=== PATIENT | female | born 1985 | race Caucasian/White ===

== ENCOUNTER → 2024-06-17 17:48 | Outpatient (BNVA) | payer MEDICAID, SELFPAY | PROVIDERS: PCP Family Medicine; Visit Provider Emergency Medicine | DX: J02.9 Acute pharyngitis, unspecified (principal) | CPT/HCPCS: 87880 ==

== ENCOUNTER 2025-06-06 08:58 | Emergency (ER) | payer MEDICAID, SELFPAY ==
--- OUTSIDE RECORDS SUMMARY | 2025-06-02 09:20 | XMS_ITS | Encounter Summary ---
Author Organization [facility] Address [address] [place] [address] Care Team Providers Care Web Content Manager Name Role Phone Ellie Stark MD Primary Care Provider [phone] Reason for Visit * Reason Comments Sore Throat X 2 days ago Encounter Details Date Type Department Care Team (Late st Contact Info) Description 06/02/2025 9:20 AM CDT Office Visit [facility] [address] [place] [phone] Akila Toth, HISTOPATH TECH [address] [phone] Sore throat (Primary Dx) Social History Tobacco Use Types Packs/Day Years Used Date Smoking Tobacco: Former Cigarettes 0.1 4 2 003 - 08/19/2006 Passive Smoke Exposure: Past Smokeless Tobacco: Never Alcohol Use Standard Drinks/Week Comments No 0 (1 standard drink = 0.6 oz pur e alcohol) Feeling Safe Answer Date Recorded Are you in a relationship wi th someone who hurts you emotionally and/or physically? No 01/04/2025 Comments No Sex and Gender Information Value Date Recorded Sex Assigned at Not on file Legal Sex Female 4:29 AM UTILITY TELLER Gender Identity Not on file Sexual Orientation Not on file documented as of this encounter Last Filed Vital Signs Vital Sign Reading Time Taken Comments Blood Pressure 102/70 06/02/2025 8:43 AM CDT Pulse 70 06/02/2025 8:43 AM CDT Temperature 36.9 C (98.4 F) 06/02/2025 8:43 AM CDT Respiratory Rate 17 06/02/2025 8:43 AM CDT Oxygen Saturation 97% 06/02/2025 8:43 AM CDT Inhaled Oxygen Concentration - - Weight 79.8 kg (176 lb) 06/02/2025 8:43 AM CDT Height 165.1 cm (5' 5 ) 06/02/2025 8:43 AM CDT Body Mass Index 29.29 06/02/2025 8:43 AM CDT documented in this encounter Progress Notes * Akila Toth, HISTOPATH TECH - 06/02/2025 9:03 AM CDT HISTORY OF PRESENT ILLNESS Ana Acosta, a 40 y.o. female presents with a Chief Complaint of Sore Throat (X 2 days ago) Subjective Sore Throat Pertinent negatives include no abdominal pain, congestion, coughing, ear pain or shortness of breath. She is here with her 6-year-old daughter who has had a sore throat for about 4 days. She has developed a sore throat just a couple of days ago. Did not had any fevers. 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 REVIEW OF SYSTEMS Review of Systems Constitutional: Negative for activity change, appetite change, chills, diaphoresis, fatigue, fever and unexpected weight change. HENT: Positive for sore throat. Negative for congestion, ear pain, rhinorrhea and sinus pressure. Eyes: Negative for pain and redness. Respiratory: Negative for cough, shortness of breath and wheezing. Cardiovascular: Negative for leg swelling. Gastrointestinal: Negative for abdominal pain. Genitourinary: Negative for difficulty urinating. Skin: Negative for rash. Neurological: Negative for dizziness. Objective PHYSICAL EXAM BP 102/70 (BP Location: Left arm, Patient Position (BP): Sitting, BP Cuff Size: Adult) Pulse 70 Temp 98.4 ??F (36.9 ??C) (Temporal) Resp 17 Ht 5' 5 (1.651 m) Wt 79.8 kg (176 lb) LMP 04/01/2025 (Exact Date) SpO2 97% BMI 29.29 kg/m?? Physical Exam Vitals reviewed. Constitutional: General: She is not in acute distress. Appearance: Normal appearance. She is well-developed. She is not diaphoretic. HENT: Head: Normocephalic and atraumatic. Right Ear: Tympanic membrane, ear canal and external ear normal. Left Ear: Tympanic membrane, ear canal and external ear normal. Nose: Nose normal. Mouth/Throat: Mouth: Mucous membranes are moist. Pharynx: No oropharyngeal exudate or posterior oropharyngeal erythema. Tonsils: 1+ on the right. 1+ on the left. Eyes: General: Right eye: No discharge. Left eye: No discharge. Conjunctiva/sclera: Conjunctivae normal. Neck: Thyroid: No thyromegaly. Cardiovascular: Rate and Rhythm: Normal rate and regular rhythm. Heart sounds: Normal heart sounds. No murmur heard. Pulmonary: Effort: Pulmonary effort is normal. No respiratory distress. Breath sounds: Normal breath sounds. No wheezing or rales. Abdominal: General: Bowel sounds are normal. Musculoskeletal: Cervical back: Normal range of motion and neck supple. Lymphadenopathy: Cervical: No cervical adenopathy. Skin: General: Skin is warm and dry. Neurological: Mental Status: She is alert and oriented to person, place, and time. Psychiatric: Mood and Affect: Mood normal. Behavior: Behavior normal. Thought Content: Thought content normal. Judgment: Judgment normal. Procedures Lab Results Component Value Date/Time FLUAPOC Positive/Detected (A) 08/25/2024 01:04 PM FLUBPOC Negative/Not Detected 08/25/2024 01:04 PM HCGURPOC positive 03/29/2016 02:45 PM RAPIDSTREP Negative 06/02/2025 09:03 AM RHEUMFACTOR <10 12/22/2019 11:14 AM Assessment ASSESSMENT and PLAN: ICD-10-CM ICD-9-CM 1. Sore throat J02.9 462 POC RAPID STREP A ANTIGEN 1. Sore throat with a negative rapid strep reported. Advised supportive care but certainly appropriate to follow-up if she has new or worsening symptomsincluding fever, malaise, cough or worsening sore throat. documented in this encounter Plan of Treatment Upcoming Encounters Date Type Department Care Team (Late st Contact Info) Description 06/21/2025 1:00 PM UTILITY TELLER Clinical Support [facility] [address] [phone] 11/01/2025 9:00 AM CDT Office Visit [facility] [address] [phone] Ellie Stark MD [address] [phone] documented as of this encounter Procedures Procedure Name Priority Date/Time Associated Diagnosis Comments POC RAPID STREP A ANTIGEN Routine 06/02/2025 9:03 AM CDT Sore throat documented in this encounter Results * POC RAPID STREP A ANTIGEN (06/02/2025 9:03 AM CDT) RAPID STREP POC Negative Negative, Indeterminate [facility] INTERNAL KIT QC POC Pass Pass [facility] KIT LOT NUMBER POC [id number] [facility] KIT EXP DATE POC 02.08.2026 [facility] READ METHOD POC Visual [facility] Upper Respiratory SPECIMEN FROM THROAT / Unknown 06/02/2025 9:03 AM CDT Akila CLARKP POINT OF CARE TESTING Final R esult [facility] CLIA# [id number] [address] [place] [address] documented in this encounter Visit Diagnoses Diagnosis Sore throat- Primary Acute pharyngitis documented in this encounter Care Teams Web Content Manager Relationship Specialty Start Date End Date Ellie Stark MD [address] [phone] PCP - General Family Practice 03/27/24 documented as of this encounter
--- OUTSIDE RECORDS SUMMARY | 2025-06-06 09:05 | XMS_ITS | Clinical Summary ---
Author Organization [facility] Address [address] [place] [address] Care Team Providers Care Analytical Manager Name Role Phone Cameron Tracey MD Primary Care Provider [phone] Allergies No known active allergies Medications buPROPion HCL (Wellbutrin XL) 300 mg Extended Release 24 hour tabletIndication s:Recurrent major depressive disorder, in partial remission Take 1 Tablet (300 mg) by mouth daily in the morning. 90 Tablet 1 08/17/2020 Active famotidine (PEPCID) 20 mg tabletIndication s:Mild acid reflux Take 1 Tablet (20 mg) by mouth 2 times daily. 60 Tablet 3 08/17/2020 Active sertraline (ZOLOFT) 100 mg tablet Take 1 Tablet (100 mg) by mouth daily. 30 Tablet 5 08/30/2020 Active butalbital-aceta minophen-caffein e (FIORICET) 50-325-40 mg tabletIndication s:Migraine with aura and without status migrainosus, not intractable Take 1 Tablet by mouth every 4 hours as needed for Migraine. Maximum 6 tablets per day. 30 Tablet 1 10/26/2020 Active valACYclovir (VALTREX) 500 mg tablet TAKE ONE TABLET BY MOUTH DAILY 30 Tablet 5 01/22/2021 Active Active Problems Problem Noted Date Diagnosed Date Recurrent major depressive disorder, in partial remission 04/23/2019 Genital herpes simplex 04/23/2019 Pelvic pain in female 05/19/2018 Screening for cervical cancer 04/20/2016 Overview (05/15/2017): Normal pap 03/2016 Migraine with aura and witho ut status migrainosus, not intractable Resolved Problems Problem Noted Date Diagnosed Date Resolved Date Right ovarian enlargement 05/19/2018 S/P primary low transverse 11/04/2016 05/15/2017 labor in third trimester 09/09/2016 10/07/2016 Outlet contraction of pelvis in 07/21/2016 07/21/2016 Outlet contraction of pelvis in 07/21/2016 11/04/2016 Encounter for supervision of normal in second trimester 06/02/2016 11/04/2016 Immunizations Immunization Administration Dates Next Due (ADACEL/BOOSTRIX)(10 YR UP) TDAP VACCINE, 0.5ML, IM 08/10/2016 (RECOMBIVAX HB/ENGERIX-B)(11 YR UP) HEPATITIS B VACCINE 10 MCG/1 ML OR 20 MCG/1 ML ADOL OR ADULT 2 - 3 DOSE PF, IM 08/23/2016 (TDVAX)(7 YRS UP) TETANUS AN D DIPHTHERIA TOXOIDS, ADSORBED (2 LF OF TETANUS TOXOID AND 2 LF OF DIPHTHERIA TOXOID), 0.5ML (PF), IM 12/27/1997 Hepatitis B Vaccine 07/21/2016,09/01/2015 INFLUENZA VACCINE QUADRIVALE NT 3 YR UP PF IM 05/26/2018,04/19/2017,05/17/2016 Family History Medical History Relation Name Comments Healthy Father Bebo Acosta Depression Mother Shayna Mast Healthy Mother Shayna Mast Healthy Sister 1 Janine Sevilla Thyroid Disease Sister 1 Janine Sevilla Healthy Sister 2 Healthy Son Relation Name Status Comments Father Bebo Acosta Alive Maternal Grandfather Maternal Grandmother Mother Shayna Mast Alive Paternal Grandfather Paternal Grandmother Sister 1 Janine Sevilla Alive Sister 2 Alive Son Alive Social History Tobacco Use Types Packs/Day Years Used Date Smoking Tobacco: Former Cigarettes Q uit: 2006 Smokeless Tobacco: Never Tobacco Cessation:Counseling Given: No Alcohol Use Standard Drinks/Week Comments No 0 (1 standard drink = 0.6 oz pur e alcohol) Comments No Sex and Gender Information Value Date Recorded Sex Assigned at Not on file Legal Sex Female 6:29 AM SOCCER PLAYER Gender Identity Not on file Sexual Orientation Not on file Last Filed Vital Signs Vital Sign Reading Time Taken Comments Blood Pressure 106/60 10/26/2020 11:31 AM SOCCER PLAYER Pulse 80 10/26/2020 11:31 AM SOCCER PLAYER Temperature 37.3 C (99.1 F) 10/26/2020 11:31 AM SOCCER PLAYER Respiratory Rate 16 10/26/2020 11:31 AM SOCCER PLAYER Oxygen Saturation 97% 10/26/2020 11:31 AM SOCCER PLAYER Inhaled Oxygen Concentration - - Weight 69.2 kg (152 lb 9.6 oz) 10/26/2020 11:31 AM SOCCER PLAYER Height 165.1 cm (5' 5 ) 10/26/2020 11:31 AM SOCCER PLAYER Body Mass Index 25.39 10/26/2020 11:31 AM SOCCER PLAYER Plan of Treatment Health Maintenance Due Date Last Done Comments HPV VACCINES (1 - 3-dose SCDM series) 2010 HEPATITIS B VACCINES (2 of 3 - 19+ 3-dose series) 09/20/2016 08/23/2016, 07/21/2016, 09/01/2015 Pre-Diabetes and Diabetes Screening 08/04/201708/04 PAP SMEAR 04/12/2019 04/12/2016, 08/04/2014 CERVICAL CANCER SCREENING 04/12/2021 HPV/Cotest (21-29) 04/12/2021 04/12/2016 HPV/Cotest (30-65) 04/12/2021 04/12/2016 BREAST CANCER SCREENING 2023 INFLUENZA VACCINE (#1) 2025 8, 04/19/2017, 05/17/2016 Preventative Visit-Managed Medicaid 04/28/2025 04/27/2024, 04/28/2018, 04/19/2017 DTAP/TDAP/TD VACCINES (3 - T d or Tdap) 08/10/2026 08/10/2016, 12/27/1997 Procedures Procedure Name Priority Date/Time Associated Diagnosis Comments CERV/VAG CYTOPATH, THIN PREP IMAGR RFLX HPV Routine 04/12/2016 5:12 AM CDT Supervision of other normal , antepartum, first trimester HEMOGLOBIN A1C Routine 08/04/2014 from Last 3 Months or Most Recently Relevant to Health Maintenance Results * CERV/VAG CYTOPATH, THIN PREP IMAGR RFLX HPV (04/12/2016 5:12 AM CDT) CASE REPORT Gynecologic Cytology Report Case: [id number] Authorizing Provider: Alexsandra Curtis MD Collected: 04/12/2016511 Ordering Location: [facility] Received: 04/16/2016512 Services [place] First Screen: Eugenia Douglas Specimen: LB PAP IM W/RFLX HPV PROT, Endocervix 04/19/2016 10:57 AM CDT [facility] Pc Installation Engineer Specimen Adequacy Satisfactory for evaluation, endocervical/montelongo sformation zone component absent 04/19/2016 10:57 AM CDT [facility] Pc Installation Engineer General Categorization Negative For Intraepithelial Lesion Or Malignancy 04/19/2016 10:57 AM CDT [facility] Pc Installation Engineer Interpretation Negative For Intraepithelial Lesion Or Malignancy 04/19/2016 10:57 AM CDT [facility] Verified by Eugenia Douglas on 04/19/2016 at 1057 CDT Comment: Routine follow-up is suggested. Pc Installation Engineer Previous Pap Date 04/19/2016 10:57 AM CDT [facility] Comment:date unknown Pc Installation Engineer Prev Pap Result NIL 04/19/2016 10:57 AM CDT [facility] GynLMP 12/28/15 04/19/2016 10:57 AM T [facility] Pc Installation Engineer Educational Note 04/19/2016 10:57 AM T [facility] Comment: Gynecological cytology is a screening procedure subject to both false negative and false positive results. It is most reliable when a satisfactory sample is obtained on a regular repetitive basis. Results must be interpreted in the context of historic and current clinical information. Recommend patient management according to the 2012 ASCCP Consensus Guidelines, ([place]: Cancer J Clin, 62(3); 147-172,2012) EMBEDDED IMAGE 04/19/2016 10:57 AM CDT [facility] Genital SWAB OF ENDOCERVIX / Unknown 04/12/2016 5:12 AM CDT 04/16/2016 5:13 AM CDT us Alexsandra Curtis MD PATHOLOGY/CYTOLOGY ORDERAB LES Final Result [facility] CLIA# [id number] [address] [place] [address] * HEMOGLOBIN A1C (08/04/2014) ABSTRACTED HGB A1C 4.7 EXTERNAL LAB HEMOGLOBIN A1C 4.7 - 6.4 % EXTERNAL LAB HEMOGLOBIN A1C EXTERNAL LAB GLUCOSE, MEAN BLOOD EXTERNAL LAB Blood specimen (specimen) 08/04/2014 us Abstract Spg Provider CHEMISTRY ORDERABLES Final Result Performing Organization Address City/[facility] Co de Phone Number EXTERNAL LAB from Last 3 Months or Most Recently Relevant to Health Maintenance Insurance [facility] [employer] DIM[employer]RIS Advance Directives For more information, please contact: [phone] * Full Code (Latest Code Status on File) Date Activated Date Inactivated Comments 09/20/2016 8:55 AM 09/20/2016 10:26 AM * Full Code Date Activated Date Inactivated Comments 09/09/2016 1:58 PM 09/11/2016 4:59 PM Care Teams Analytical Manager Relationship Specialty Start Date End Date Cameron Tracey MD [address] [place] [phone] PCP - General Family Practice 05/14/19
--- OUTSIDE RECORDS SUMMARY | 2025-06-06 09:05 | XMS_ITS | Encounter Summary ---
Author Organization [facility] Address [address] [place] [address] Care Team Providers Care Fiber Worker Name Role Phone Cameron Tracey MD Primary Care Provider [phone] Reason for Referral * Outpatient Services (Routine) - Closed Specialty Diagnoses / Procedures Referred By Liz miranda Referred To Contact Diagnoses Suspected abnormality affecting management of mother, antepartum, not applicable or unspecified fetus Procedures US OB DETAIL SINGLE GEST Gabriel Prado MD [address] [address] Phone: tel: fax: Referral ID Status Reason Start Date Expiration Date Visits Re quested Visits Authorized [id number] Closed 09/11/2016 10/12/2017 1 1 CE MACHINERY OR EQUIPMENT INSTALLER Encounter Details Date Type Department Care Team (Late st Contact Info) Description 09/11/2016 Ancillary Orders [facility] 5B Gynecology [address] [place] [address] Gabriel Prado MD [address] [phone] Suspected abnormality affecting management of mother, antepartum, not applicable or unspecified fetus Social History Tobacco Use Types Packs/Day Years Used Date Smoking Tobacco: Former Cigarettes Smokeless Tobacco: Never Alcohol Use Standard Drinks/Week Comments No 0 (1 standard drink = 0.6 oz pur e alcohol) Comments Yes Sex and Gender Information Value Date Recorded Sex Assigned at Not on file Legal Sex Female 6:29 AM OFFICE MACHINERY OR EQUIPMENT INSTALLER Gender Identity Not on file Sexual Orientation Not on file documented as of this encounter Plan of Treatment Not on file documented as of this encounter Results * US OB DETAIL SINGLE GEST (09/11/2016 4:43 PM OFFICE MACHINERY OR EQUIPMENT INSTALLER) Anatomical Region Laterality Modality Pelvis Ultrasound 09/11/2016 3:52 PM OFFICE MACHINERY OR EQUIPMENT INSTALLER Impressions 09/12/2016 4:02 PM OFFICE MACHINERY OR EQUIPMENT INSTALLER IMPRESSION Findings Comment abnormalities are not identified Incomplete detailed anatomy scan, compromised by the advanced gestational age. Estimated weight is appropriate for gestational age Narrative 09/12/2016 4:02 PM [facility] Detailed US Pat. Name: ANA ACOSTA Study Date: 09/11/2016 3:52pm Pat. NO: [id number] Referring MD: GABRIEL PRADO Site: [facility] Wood Model Builder: Kei Ott RDMS, Brandy Masterson RDMS : 1985 Age: 31 INDICATION Suspected Congenital Anomaly CODING Procedures 54969: OB with Detail (Comprehensive). HISTORY OB History : 2. Para: 1. METHOD Transabdominal ultrasound examination. Adequate. Roche . Number of fetuses: 1. DATING GA by stated dating 35 w + 0 d VANNA by stated dating : 10/16/2016 Ultrasound examination on: 09/11/2016 GA by U/S based upon: AC, BPD, Femur, HC GA by U/S 34 w + 5 d VANNA by U/S: 10/18/2016 Assigned: Dating performed on 09/11/2016, based on the stated dating Assigned GA 35 w + 0 d Assigned VANNA: 10/16/2016 BIOMETRY Main Biometry: BPD 88.2 mm 71% 35w 5d Hadlock OFD 111.2 mm 89% 37w 1d Gm HC 314.2 mm 22% 35w 2d Hadlock AC 297.8 mm 22% 33w 5d Hadlock Femur 66.0 mm 18% 34w 0d Hadlock Cerebellum tr 47.8 mm 92% 36w 1d Sanches CM 5.7 mm 9% Nicolaides Humerus 55.5 mm 8% 32w 2d Gm Weight Calculation: EFW 2,362 g 30% Ever EFW (lb,oz) 5 lb 3 oz Calculated by Carlos ([id number]) Proportionality Ratios: Cephalic index 0.79 33% Nicolaides HC / AC 1.06 64% Nicolaides FL / BPD 0.75 FL / AC 0.22 Head / Face / Neck Biometry: Track Laying Machine Operator 8.4 mm Extremities / Bony Struc Biometry: Radius 47.0 mm 18% Chitty Ulna 56.7 mm 61% 35w 5d Gm Tibia 56.9 mm 33% 33w 3d Gm Fibula 55.0 mm 29% 34w 0d Gm GENERAL EVALUATION Cardiac activity: present. movements: present. Presentation: cephalic. Placenta: Fundal to right laterat, Grade III, inferior placental margin is > 2.0 cm from the internal cervical os. Umbilical cord: 3 vessel cord, placental cord insertion is central. Amniotic fluid: Appears normal. ANATOMY The following structures were visualized with normal appearance: Head Head size. Head shape. Brain Parenchyma. Lateral cerebral ventricles. Third ventricle. Fourth ventricle. Cisterna magna. Midline falx. Choroid plexus. Thalami. Cavum septi pellucidi. Posterior fossa. Cerebellum. Cerebrum. Cerebellar lobes. Vermis. Face Nose. Lips. Palate. Maxilla. Neck Spine Cervical, thoracic, lumbar and sacral spine appear normal. Thorax No thoracic abnormalities detected. Right lung. Left lung. Diaphragm. Heart Situs. Four chamber view. Left ventricular outflow tract. Right ventricular outflow tract. 3-vessel - trachea view. 3-vessel view. Bicaval view: IVC/SVC appear nomal. Aortic arch view. High short axis view. Stomach Stomach size and situs appear normal. GI tract Liver. Bowel. Kidneys Kidneys appear normal bilaterally. Bladder size and shape. Upper extrem. Long bones of the upper extremities appear bilaterally symmetric and have normal appearing architecture. Lower extrem. Long bones of the lower extremeties appear bilaterally symmetric and have normal appearing architecture. Skeleton Position of hands: Hands open and close. The following structures could not be adequately visualized: Face Profile. The following structures could not be visualized: Face Mandible. Abdominal wall Umbilical cord insertion site. Skeleton Position of feet. Gender: male. MATERNAL STRUCTURES Uterus Unremarkable. Cervix Unremarkable. Right Ovary Visualized. Appearance: No adnexal mass identified. Left Ovary Visualized. Appearance: No adnexal mass identified. Cul de Sac Imaging of the cul-de-sac is unremarkable. Procedure Note Trey Aden II, MD - 09/12/2016 [facility] Pat. Name:David ACOSTA Date:09/11/2016 3:52pm Pat. NO: [id number] MD:GABRIEL PRADO [facility]Kei Ott RDMS, Brandy Masterson RDMS :1985Age:31 INDICATION Suspected Congenital Anomaly CODING Procedures 14893: OB with Detail (Comprehensive). HISTORY OB History : 2. Para: 1. METHOD Transabdominal ultrasound examination. Adequate. Roche . Number of fetuses: 1. DATING GA by stated dating 35 w + 0 d VANNA by stated dating :10/16/2016 Ultrasound examination on:09/11/2016 GA by U/S based upon:AC, BPD, Femur, HC GA by U/S34 w + 5 d VANNA by U/S:10/18/2016 Assigned:Dating performed on 09/11/2016, based on the stated dating Assigned GA35 w + 0 d Assigned VANNA:10/16/2016 BIOMETRY Main Biometry: BPD 88.2 mm 71% 35w 5d Hadlock OFD 111.2 mm 89% 37w 1d Gm HC 314.2 mm 22% 35w 2d Hadlock AC 297.8 mm 22% 33w 5d Hadlock Femur 66.0 mm 18% 34w 0d Hadlock Cerebellum tr 47.8 mm 92% 36w 1d Sanches CM 5.7 mm 9% Nicolaides Humerus 55.5 mm 8% 32w 2d Gm Weight Calculation: EFW 2,362 g 30% Ever EFW (lb,oz) 5 lb 3 oz Calculated by Carlos ([id number]) Proportionality Ratios: Cephalic index 0.79 33% Nicolaides HC / AC 1.06 64% Nicolaides FL / BPD 0.75 FL / AC 0.22 Head / Face / Neck Biometry: Track Laying Machine Operator 8.4 mm Extremities / Bony Struc Biometry: Radius 47.0 mm 18% Chitty Ulna 56.7 mm 61% 35w 5d Gm Tibia 56.9 mm 33% 33w 3d Gm Fibula 55.0 mm 29% 34w 0d Gm GENERAL EVALUATION Cardiac activity: present. movements: present. Presentation: cephalic. Placenta: Fundal to right laterat, Grade III, inferior placental margin is > 2.0 cm from the internal cervical os. Umbilical cord: 3 vessel cord, placental cord insertion is central. Amniotic fluid: Appears normal. ANATOMY The following structures were visualized with normal appearance: Head Head size. Head shape. Brain Parenchyma. Lateral cerebral ventricles. Third ventricle. Fourth ventricle. Cisterna magna. Midline falx. Choroid plexus. Thalami. Cavum septi pellucidi. Posterior fossa. Cerebellum. Cerebrum. Cerebellar lobes. Vermis. Face Nose. Lips. Palate. Maxilla. Neck Spine Cervical, thoracic, lumbar and sacral spine appear normal. Thorax No thoracic abnormalities detected. Right lung. Left lung. Diaphragm. Heart Situs. Four chamber view. Left ventricular outflow tract. Right ventricular outflow tract. 3-vessel - trachea view. 3-vessel view. Bicaval view: IVC/SVC appear nomal. Aortic arch view. High short axis view. Stomach Stomach size and situs appear normal. GI tract Liver. Bowel. Kidneys Kidneys appear normal bilaterally. Bladder size and shape. Upper extrem. Long bones of the upper extremities appear bilaterally symmetric and have normal appearing architecture. Lower extrem. Long bones of the lower extremeties appear bilaterally symmetric and have normal appearing architecture. Skeleton Position of hands: Hands open and close. The following structures could not be adequately visualized: Face Profile. The following structures could not be visualized: Face Mandible. Abdominal wall Umbilical cord insertion site. Skeleton Position of feet. Gender: male. MATERNAL STRUCTURES Uterus Unremarkable. Cervix Unremarkable. Right Ovary Visualized. Appearance: No adnexal mass identified. Left Ovary Visualized. Appearance: No adnexal mass identified. Cul de Sac Imaging of the cul-de-sac is unremarkable. IMPRESSION IMPRESSION Findings Comment abnormalities are not identified Incomplete detailed anatomy scan, compromised by the advanced gestational age. Estimated weight is appropriate for gestational age us Gabriel Prado MD ORDERABLES Final R esult documented in this encounter Visit Diagnoses Diagnosis Suspected abnormality affecting management of mother, antepartum, not applicable or unspecified fetus documented in this encounter Care Teams Fiber Worker Relationship Specialty Start Date End Date Cameron Tracey MD [address] [place] [phone] PCP - General Family Practice 05/14/19 documented as of this encounter
--- OUTSIDE RECORDS SUMMARY | 2025-06-06 09:05 | XMS_ITS | Encounter Summary ---
Author Organization [facility] Address [address] [place] [address] Care Team Providers Care Plant And Maintenance Technician Name Role Phone Cameron Tracey MD Primary Care Provider [phone] Encounter Details Date Type Department Care Team (Latest Contact Info) Description 03/03/[address] 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
--- OUTSIDE RECORDS SUMMARY | 2025-06-06 09:05 | XMS_ITS | Encounter Summary ---
Author Organization [facility] Address [address] [place] [address] Care Team Providers Care Plastic Press Molder Name Role Phone Cameron Tracey MD Primary Care Provider [phone] Encounter Details Date Type Department Care Team (Late st Contact Info) Description 07/13/2002 Emergency [facility] Emergency Department [address] 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
--- OUTSIDE RECORDS SUMMARY | 2025-06-06 09:05 | XMS_ITS | Encounter Summary ---
Author Organization [facility] Address [address] [place] [address] Care Team Providers Care Pediatric Psychiatrist Name Role Phone Cameron Tracey MD Primary Care Provider [phone] Encounter Details Date Type Department Care Team (Latest Contact Info) Description 09/04/2000 Outpatient Historical [facility] [address] [phone] Cinthia Pham MD [address], [address] Acute frontal sinusitis (Primary Dx); Pneumonia, organism unspecified(486) Social History Tobacco Use Types Packs/Day Years Used Date Smoking Tobacco: Never Assessed Comments Unknown Sex and Gender Information Value Date Recorded Sex Assigned at Not on file Legal Sex Female 6:29 AM VISCERA WASHER Gender Identity Not on file Sexual Orientation Not on file documented as of this encounter Plan of Treatment Not on file documented as of this encounter Visit Diagnoses Diagnosis Acute frontal sinusitis- Primary Pneumonia, organism unspecified(486) Pneumonia, organism unspecified documented in this encounter Care Teams Pediatric Psychiatrist Relationship Specialty Start Date End Date Cameron Tracey MD [address] [place] [phone] PCP - General Family Practice 05/14/19 documented as of this encounter
--- OUTSIDE RECORDS SUMMARY | 2025-06-06 09:05 | XMS_ITS | Clinical Summary ---
Author Organization [facility] Address [address] [place] [address] Care Team Providers Care Plastics Engineering Teacher Name Role Phone Ellie Stark MD Primary Care Provider [phone] Allergies Active Allergy Reactions Criticality Noted Date Comments Loratadine-Pseudoeph edrine Other (See Comments) 05/04/2024 Increased heart rate Sulfamethoxazole-Tri methoprim Anaphylaxis,Swelling High 05/18/2024 Medications butalbital-acet aminophen-caffe ine (FIORICET) 50-325-40 mg tablet Take 1 Tablet by mouth every 4 hours as needed for Migraine. 3 Active albuterol sulfate HFA 90 mcg/actuation aerosol inhalerIndicati ons:Wheezing Take 2 Puffs by inhalation every 6 hours as needed for Shortness of Breath or Wheezing. 8.5 Gram 1 4 Active Additional Information Patient not taking.Reported on 06/02/2025 ibuprofen (MOTRIN) 600 mg tabletIndicatio ns:Acute left-sided thoracic back pain Take 1 Tablet (600 mg) by mouth every 8 hours as needed for Pain. 15 Tablet 4 Active Additional Information Patient not taking.Reported on 06/02/2025 EpiPen 2-Ilya 0.3 mg/0.3 mL Auto-Injector Inject 0.3 mg by subcutaneous injection one time only. 4 Active mupirocin (BACTROBAN) 2 % OintmentIndicat ions:Furuncle of groin Apply to affected area daily. 30 Gram 1 4 Active Additional Information Patient not taking.Reported on 06/02/2025 hydrOXYzine HCL (ATARAX) 25 mg tabletIndicatio ns:Anxiety state Take 1 Tablet (25 mg) by mouth 3 times daily as needed for Itching. 30 Tablet 5 Active Additional Information Patient not taking.Reported on 06/02/2025 valACYclovir (VALTREX) 500 mg tabletIndicatio ns:Genital herpes simplex, unspecified site Take 1 Tablet (500 mg) by mouth daily. 30 Tablet 3 5 Active acetaminophen (TYLENOL) 500 mg tablet Take 500 mg by mouth every 6 hours as needed for Pain. Active aspirin (JOSÉ MIGUEL CHEWABLE) 81 mg Tablet, Chewable Take 1 Tablet (81 mg) by mouth 2 times daily. 60 Tablet 1 01/04/2025 12:14 PM CDT 5 Active Additional Information Patient not taking.Reported on 06/02/2025 oxyCODONE-aceta minophen (Percocet) 5-325 mg tabletIndicatio ns:Arthritis of right subtalar joint Take 1 Tablet by mouth every 4 hours as needed for Pain. 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 Dorsocervical fat pad 06/09/2024 Dizziness 05/18/2024 Nausea 05/18/2024 Right carpal tunnel syndrome 02/13/2023 Recurrent major depressive disorder, in partial remission 04/23/2019 Genital herpes simplex 04/23/2019 Pelvic pain in female 05/19/2018 Screening for cervical cancer 04/20/2016 Overview (12/15/2020): Normal pap 03/2016 Migraine with aura and witho ut status migrainosus, not intractable Resolved Problems Problem Noted Date Diagnosed Date Resolved Date Abscess of right groin 05/18/202404/29 Right ovarian enlargement 05/19/2018 S/P primary low transverse 11/04/2016 05/15/2017 labor in third trimester 09/09/2016 10/07/2016 Outlet contraction of pelvis in 07/21/2016 11/04/2016 Outlet contraction of pelvis in 07/21/2016 07/21/2016 Encounter for supervision of normal in second trimester 06/02/2016 11/04/2016 Encounters Date Type Department Care Team Description 06/02/2025 9:20 AM CDT Office Visit [facility] [address] [phone] Akila Toth, CHAIN SAW OPERATOR Sore throat (Primary Dx) 04/29/2025 10:00 AM CDT Office Visit [facility] [address] [phone] Ellie Stark MD Migraine with aura and without status migrainosus, not intractable (Primary Dx); Recurrent major depressive disorder, in partial remission; Genital herpes simplex, unspecified site 04/27/2025 9:45 AM CDT Ancillary Procedure [facility] [address] [place] [address] Porfirio Chamorro MD S/P foot surgery, right 04/27/2025 9:40 AM CDT Office Visit [facility] [address] [place] [phone] Porfirio Chamorro MD S/P foot surgery, right (Primary Dx) 03/16/2025 9:55 AM CDT Ancillary Procedure [facility] [address] [place] [phone] Porfirio Chamorro MD S/P foot surgery, right 03/16/2025 9:50 AM CDT Office Visit [facility] [address] [place] [address] Porfirio Chamorro MD S/P foot surgery, right (Primary Dx) from Last 3 Months Immunizations Immunization Administration Dates Next Due (ADACEL/BOOSTRIX)(10 YR UP) TDAP VACCINE, 0.5ML, IM 11/20/2018,08/10/2016 (RECOMBIVAX HB/ENGERIX-B)(11 YR UP) HEPATITIS B VACCINE 10 MCG/1 ML OR 20 MCG/1 ML ADOL OR ADULT 2 - 3 DOSE PF, IM 08/23/2016 (SPIKEVAX) (12 YRS UP PRIMAR Y SERIES) COVID-19 VACCINE - MRNA-1273(PF) 100 MCG/0.5 ML IM SUSP 04/24/2021,03/27/2021 (TDVAX)(7 YRS UP) TETANUS AN D DIPHTHERIA TOXOIDS, ADSORBED (2 LF OF TETANUS TOXOID AND 2 LF OF DIPHTHERIA TOXOID), 0.5ML (PF), IM 12/27/1997 Hepatitis B Vaccine 07/21/2016,09/01/2015 Hepatitis B Vaccine Adult IM Patient Supplied 08/23/2016 INFLUENZA VACCINE QUADRIVALE NT 3 YR UP PF IM 05/26/2018,04/19/2017,05/17/2016 INFLUENZA VACCINE QUADRIVALE NT 6 MOS UP PF IM 07/10/2022,05/26/2018,04/19/2017,2015 INFLUENZA VACCINE TRIVALENT SPLIT VIRUS, (6 MOS UP), 0.5ML (PF), IM 06/11/2024 Family History Medical History Relation Name Comments Healthy Father Bebo Acosta Heart Attack Father Bebo Acosta Heart Surgery Father Bebo Acosta Depression Mother Shayna Mast Healthy Mother Shayna Mast Healthy Sister 1 Janine Sevilla Thyroid Disease Sister 1 Janine Sevilla Healthy Sister 2 Healthy Son Breast Cancer Neg Hx Colon Cancer Neg Hx Melanoma Neg Hx Ovarian Cancer Neg Hx Pancreatic Cancer Neg Hx Uterine or Endometrial Cance r, Not Including Cervical Neg Hx Relation Name Status Comments Father Bebo Acosta Alive Maternal Grandfather Maternal Grandmother Mother Shayna Mast Alive Paternal Grandfather Paternal Grandmother Sister 1 Janine Sevilla Alive Sister 2 Alive Son Alive Social History Tobacco Use Types Packs/Day Years Used Date Smoking Tobacco: Former Cigarettes 0.1 4 2 003 - 08/19/2006 Passive Smoke Exposure: Past Smokeless Tobacco: Never Tobacco Cessation:Counseling Given: Not Answered Alcohol Use Standard Drinks/Week Comments No 0 (1 standard drink = 0.6 oz pur e alcohol) Feeling Safe Answer Date Recorded Are you in a relationship wi th someone who hurts you emotionally and/or physically? No 01/04/2025 Comments No Sex and Gender Information Value Date Recorded Sex Assigned at Not on file Legal Sex Female 4:29 AM VARNISH MAKER Gender Identity Not on file Sexual Orientation [...] Mass Index 29.29 06/02/2025 8:43 AM CDT Plan of Treatment Upcoming Encounters Date Type Department Care Team (Late st Contact Info) Description 06/21/2025 1:00 PM VARNISH MAKER Clinical Support [address] [phone] 11/01/2025 9:00 AM CDT Office Visit [address] [phone] Ellie Stark MD [address] [place] [phone] Health Maintenance Due Date Last Done Comments HPV VACCINES (1 - 3-dose SCD M series) 2010 HEPATITIS B VACCINES (2 of 3 - 19+ 3-dose series) 09/20/2016 08/23/2016, 08/23/2016, 07/21/2016, Additional history exists Pre-Diabetes and Diabetes Screening 08/04/2017 08/04/2014 INFLUENZA VACCINE (#1) 2025 , 07/10/2022, 05/26/2018, Additional history exists COVID-19 Vaccine (2024-2 6 season) 2025 04/24/2021, 03/27/2021 Preventative Visit-Managed Medicaid 04/28/2025 04/27/2024, 04/28/2018, 04/19/2017 BREAST CANCER SCREENING 07/08/2025 07/08/2024 PAP SMEAR 10/22/2027 10/21/2024, 03/20, 04/12/2016, Additional history exists DTAP/TDAP/TD VACCINES (4 - T d or Tdap) 11/20/2028 11/20/2018, 08/10/2016, 12/27/1997 CERVICAL CANCER SCREENING 10/21/2029 HPV/Cotest (21-29) 10/21/2029 10/21/2024, 0 04/12/2016, 08/04/2014 HPV/Cotest (30-65) 10/21/2029 10/21/2024, 0 04/12/2016, 08/04/2014 Medical Devices Implanted Type Area Turret Lathe Machinist Device Identifier Shelf Expiration Date Model / Serial / Lot Augment Injectable 3ml [id number] - [id number] Implanted:Qty: 1 on 01/04/2025 by Porfirio Chamorro MD at [facility] Biological Right: Foot [employer] [id number] 04/15/2027 [id number] / / [id number] Screw Cmprsn Hdls 7.0x80mm T25 Ft Ar-8770-80h - [id number] Implanted:Qty: 1 on 01/04/2025 by Porfirio Chamorro MD at [facility] Screw Right: Foot [employer] 01/01/2026 AR-8770- 80H / / [id number] Screw Cmprsn Hdls 7.0x75mm T25 Ft Ar-8770-75h - [id number] Implanted:Qty: 1 on 01/04/2025 by Porfirio Chamorro MD at [facility] Screw Right: Foot [employer] 01/01/2026 AR-8770- 75H / / [id number] Allograft Arthrocell+ 5ml Abs-2089-12 - [id number] Implanted:Qty: 1 on 01/04/2025 by Porfirio Chamorro MD at [facility] Tissue Right: Foot [employer] 11/07/2025 ABS-2089 / / [id number] Graft Allosync Dbm Fiber 5ml Ronni Abs-2016-12 [id number] Implanted:Qty: 1 on 01/04/2025 by Porfirio Chamorro MD at [facility] Tissue Right: Foot [employer] 08/15/2026 ABS-2016 / [id number] / Readigraft Canc Chips 15ml Can15 14bp - [id number] Implanted:Qty: 1 on 01/04/2025 by Porfirio Chamorro MD at [facility] Tissue Right: Foot [employer] 07/20/2029 CAN15 14BP / / [id number] 20mmx7.5mm Implanted:Qty: 1 on 01/04/2025 by Porfirio Chamorro MD at [facility] Right: Foot 02/15/2027 ARTHREX- ABS-2800 2075 / / [id number] Procedures Procedure Name Priority Date/Time Associated Diagnosis Comments POC RAPID STREP A ANTIGEN Routine 06/02/2025 9:03 AM CDT Sore throat XR FOOT 3+ VW RIGHT Routine 04/27/2025 9 :47 AM CDT S/P foot surgery, right XR ANKLE 3+ VW RIGHT Routine 03/16/2025 10:01 AM CDT S/P foot surgery, right CERV/VAG CYTO SCREEN PAP W/HPV Routine 10/21/2024 11:17 AM VARNISH MAKER Screening for cervical cancer MAMMO 3D HANNAH SCREEN BILATERAL MOBILE Routine 07/08/2024 10:17 AM VARNISH MAKER Visit for screening mammogram HEMOGLOBIN A1C 08/04/2014 from Last 3 Months or Most Recently Relevant to Health Maintenance Results * POC RAPID STREP A ANTIGEN (06/02/2025 9:03 AM CDT) RAPID STREP POC Negative Negative, Indeterminate [facility] INTERNAL KIT QC POC Pass Pass [facility] KIT LOT NUMBER POC [phone] [facility] KIT EXP DATE POC 02.08.2026 [facility] READ METHOD POC Visual [facility] Upper Respiratory SPECIMEN FROM THROAT / Unknown 06/02/2025 9:03 AM CDT Akila Toth CHAIN SAW OPERATOR POINT OF CARE TESTING Final R esult [facility] CLIA# [id number] [address] [place] [address] * XR FOOT 3+ VW RIGHT (04/27/2025 9:47 AM CDT) Anatomical Region Laterality Modality Ankle / Foot Computed Radiogr aphy Narrative 05/13/2025 4:32 PM CDT AP, lateral, and oblique x-rays of the right foot: Two screws spanning in the subtalar joint, which appears to be consolidated. There is some talar beaking at the talar neck, which was previously noted. The overall bony alignment is maintained with no obvious new acute fracture or dislocation. us Porfirio Chamorro MD DIAGNOSTIC IMAGING ORDERABLES Final Result * XR ANKLE 3+ VW RIGHT (03/16/2025 10:01 AM CDT) Anatomical Region Laterality Modality Ankle / Foot Computed Radiogr aphy Narrative 03/23/2025 4:41 PM CDT AP, lateral, and oblique X-rays of the right ankle performed on 03/16/2025 show two screws spanning the subtalar joint, which appears to be consolidating. There is no obvious evidence of nonunion. Overall bony alignment is maintained, and no fractures or dislocations are appreciated. Porfirio Chamorro MD DIAGNOSTIC IMAGING ORDERABLES Final Result * CERV/VAG CYTO SCREEN PAP W/HPV (10/21/2024 11:17 AM VARNISH MAKER) CLINICAL INFORMATION [facility] Comment:None given LAST MENSTRUAL PERIOD [facility] Comment:[id number] PREV PAP: [facility] Comment:NONE GIVEN PREV BX: [facility] Comment:NONE GIVEN SOURCE [facility] Comment:Endocervix ADEQUACY: [facility] Comment: Satisfactory for evaluation. Endocervical/transformation zone component present. PAP INTERP [facility] Comment: Cytology Results: Negative for intraepithelial lesion or malignancy. COMMENT (PAP TEST) Q [facility]est [facility] Comment: This Pap test has been evaluated with computer assisted technology. PHYSICAL THERAPY ASST: Stefany est [facility] [place] Comment: YQ, CT(ASCP) CT screening location: [facility] [place] [address] [place] [address] EXPLANATORY NOTE [facility] Comment: EXPLANATORY NOTE: The Pap is a screening test for cervical cancer. It is not a diagnostic test and is subject to false negative and false positive results. It is most reliable when a satisfactory sample, regularly obtained, is submitted with relevant clinical findings and history, and when the Pap result is evaluated along with historic and current clinical information. HPV E6/E7 Not Detected Not Detected [facility] Comment: Methodology: Shop Firer/Fireman-Mediated Amplification This assay detects E6/E7 viral messenger RNA (mRNA) from 14 high-risk HPV types (16,18,31,33,35,39,45,51,52,56,58,59,66,68). Cervical sources are required for HPV testing. If a vaginal source from a patient who has had a total hysterectomy with removal of cervix was submitted, please contact the testing laboratory for alternative testing options. For additional information, please refer to http://education.[employer]/faq/LKS538q8 (This link if provided for information/ educational purposes only.) Test Performed at: [facility] [address] [place] [address] Hannah Fry MD SL Genital SWAB OF ENDOCERVIX / Unknown 10/21/2024 11:17 AM VARNISH MAKER 10/22/2024 6:54 AM VARNISH MAKER Brittani Hays GRAVURE PRESS SET UP OPERATOR PATHOLOGY/CYTOLOGY ORDERABL ES Final Result Performing Organization Address [facility] Co de Phone Number [facility] [phone] [facility] [address] [place] [address] * MAMMO 3D HANNAH SCREEN BILATERAL MOBILE (07/08/2024 10:17 AM VARNISH MAKER) Anatomical Region Laterality Modality Breast Bilateral Mammography Impressions 07/21/2024 10:16 PM VARNISH MAKER : No mammographic evidence of malignancy. BI-RADS ASSESSMENT: 1 - Negative RECOMMENDATION: Routine annual screening mammography. Narrative 07/21/2024 10:16 PM VARNISH MAKER EXAM: MAMMO SCRN BILAT 3D HANNAH W OR WO CAD INDICATION: Screening COMPARISON: This is the patient's Baseline Mammogram. No comparisons are available. BREAST COMPOSITION: The breasts are heterogeneously dense, which may obscure small masses. FINDINGS: RIGHT BREAST: There are no suspicious masses, calcifications, or areas of architectural distortion. LEFT BREAST: There are no suspicious masses, calcifications, or areas of architectural distortion. us Ellie Stark MD MAMMO ORDERABLES Final Res ult * HEMOGLOBIN A1C (08/04/2014) ABSTRACTED HGB A1C 4.7 EXTERNAL LAB HEMOGLOBIN A1C EXTERNAL LAB HEMOGLOBIN A1C EXTERNAL LAB GLUCOSE, MEAN BLOOD EXTERNAL LAB Blood 08/04/2014 Narrative EXTERNAL LAB - 08/04/2014 This order was created through External Result Entry us Sgf Scanning CHEMISTRY ORDERABLES Final Resul t EXTERNAL LAB from Last 3 Months or Most Recently Relevant to Health Maintenance Insurance [employer] MEDICAID RX INFOCROSSING Medicaid Care Teams Plastics Engineering Teacher Relationship Specialty Start Date End Date Ellie Stark MD [address] [place] [phone] PCP - General Family Practice 03/27/24
--- OUTSIDE RECORDS SUMMARY | 2025-06-06 09:05 | XMS_ITS | Encounter Summary ---
Author Organization [facility] Address [address] [place] [address] Care Team Providers Care Director Compensation Name Role Phone Cameron Tracey MD Primary Care Provider [phone] Encounter Details Date Type Department Care Team (Latest Contact Info) Description 07/20/2002 Outpatient Historical [facility] [place] [address] [phone] Brittani Bowden MD [address] [place] [address] OPEN WOUND OF FACE NOS (Primary Dx); ATTEN-SURG DRESSNG/SUTUR; OBSERVATION-ACCIDENT NEC Social History Tobacco Use Types Packs/Day Years Used Date Smoking Tobacco: Never Assessed Comments Unknown Sex and Gender Information Value Date Recorded Sex Assigned at Not on file Legal Sex Female 6:29 AM OUTREACH CLINICIAN Gender Identity Not on file Sexual Orientation Not on file documented as of this encounter Plan of Treatment Not on file documented as of this encounter Visit Diagnoses Diagnosis Open wound of face, unspecified site, without mention of complication- Primary Attention to dressings and sutures Observation following other accident documented in this encounter Care Teams Director Compensation Relationship Specialty Start Date End Date Cameron Tracey MD [address] [place] [phone] PCP - General Family Practice 05/14/19 documented as of this encounter
--- OUTSIDE RECORDS SUMMARY | 2025-06-06 09:05 | XMS_ITS | Encounter Summary ---
Author Organization [facility] Address [address] [place] [address] Care Team Providers Care Business Technology Professor Name Role Phone Cameron Tracey MD Primary Care Provider [phone] Encounter Details Date Type Department Care Team (Latest Contact Info) Description 02/24/2002 Outpatient Historical [facility] [address] [place] [phone] Brittani Bowden MD [address] [place] [phone] VAGINITIS NOS (Primary Dx) Social History Tobacco Use Types Packs/Day Years Used Date Smoking Tobacco: Never Assessed Comments Unknown Sex and Gender Information Value Date Recorded Sex Assigned at Not on file Legal Sex Female 6:29 AM LICENSED CHEMICAL SPRAY TECHNICIAN Gender Identity Not on file Sexual Orientation Not on file documented as of this encounter Plan of Treatment Not on file documented as of this encounter Visit Diagnoses Diagnosis Vaginitis and vulvovaginitis, unspecified- Primary documented in this encounter Care Teams Business Technology Professor Relationship Specialty Start Date End Date Cameron Tracey MD [address] [place] [phone] PCP - General Family Practice 05/14/19 documented as of this encounter
--- OUTSIDE RECORDS SUMMARY | 2025-06-06 09:05 | XMS_ITS | Encounter Summary ---
Author Organization [facility] Address [address] [place] [address] Care Team Providers Care Lightning Protection Installer Name Role Phone Cameron Tracey MD Primary Care Provider [phone] Encounter Details Date Type Department Care Team (Latest Contact Info) Description 04/19/2000 Outpatient Historical [facility] [address] [place] [phone] Navi Leong MD [address] [place] [phone] Acute pharyngitis (Primary Dx) Social History Tobacco Use Types Packs/Day Years Used Date Smoking Tobacco: Never Assessed Comments Unknown Sex and Gender Information Value Date Recorded Sex Assigned at Not on file Legal Sex Female 6:29 AM BRICK CHIMNEY BUILDER Gender Identity Not on file Sexual Orientation Not on file documented as of this encounter Plan of Treatment Not on file documented as of this encounter Visit Diagnoses Diagnosis Acute pharyngitis- Primary documented in this encounter Care Teams Lightning Protection Installer Relationship Specialty Start Date End Date Cameron Tracey MD [address] [place] [phone] PCP - General Family Practice 05/14/19 documented as of this encounter
[2025-06-06 09:07] VITALS: BP 112/82; PULSE 70; RESP 16; TEMP 36.4; O2SAT 98; BMI 29.1
--- NOTE | 2025-06-06 09:11 | W.ED.URI ---
HPI - URI/Sore Throat General: Chief Complaint: Upper Respiratory Infection Stated Complaint: sore throat/cough Time Seen by Provider: 06/06/25 09:05 History of Present Illness: 40-year-old female who presents emergency room with her son. They have both checked in with a sore throat. She is concerned they may have strep. No fevers. No nausea or vomiting. No abdominal pain. No chest pain. Related Data Home Medications ?Medication ?Instructions ?Recorded ?Confirmed lpvjvgnnxn-scsnyazkgdiba-tpaabqse 1 cap PO Q8H PRN 11/20/22 06/17/24 50 mg-300 mg-40 mg capsule (Fioricet) valacyclovir 500 mg tablet 500 mg PO DAILY 05/07/23 06/17/24 clindamycin HCl 300 mg capsule 300 mg PO TID 05/05/24 06/17/24 Previous Rx's ?Medication ?Instructions ?Recorded amoxicillin 500 mg tablet 500 mg PO BID 10 days #20 tabs 06/17/24 cephalexin 500 mg tablet 500 mg PO TID 7 days #21 tabs 06/06/25 dexamethasone 6 mg tablet 6 mg PO DAILY 5 days #5 tabs 06/06/25 Allergies Allergy/AdvReac Type Severity Reaction Status Date / Time No Known Allergies Allergy Verified 06/17/24 17:28 Review of Systems Narrative: Constitutional symptoms: Negative except as documented in HPI. Skin symptoms: Negative except as documented in HPI. Eye symptoms: Negative except as documented in HPI. ENMT symptoms: Negative except as documented in HPI. Respiratory symptoms: Negative except as documented in HPI. Cardiovascular symptoms: Negative except as documented in HPI. Gastrointestinal symptoms: Negative except as documented in HPI. Genitourinary symptoms: Negative except as documented in HPI. Musculoskeletal symptoms: Negative except as documented in HPI. Neurologic symptoms: Negative except as documented in HPI. Psychiatric symptoms: Negative except as documented in HPI. Endocrine symptoms: Negative except as documented in HPI. PFS ED PFSH: Social History Smoking and tobacco/nicotine status: never used tobacco/nicotine Physical Exam Narrative: EXAM NARRATIVE: General: Alert, no acute distress. Skin: warm and dry Head: Normocephalic Neck: Trachea midline Eye: Extraocular movements are intact. Ears, nose, mouth and throat: Oral mucosa moist. Some pharyngeal erythema Respiratory: Respirations are non-labored Musculoskeletal: Normal ROM Gastrointestinal: Abdomen does not appear distended Neurological: Alert and oriented, No focal neurological deficit observed. Psychiatric: Cooperative, appropriate mood & affect. Course Vital Signs: Vital signs: Vital Signs Temperature 97.5 F L 06/06/25 09:07 Pulse Rate 70 06/06/25 09:07 Respiratory Rate 16 06/06/25 09:07 Blood Pressure 112/82 06/06/25 09:07 Pulse Oximetry 98 06/06/25 09:07 Oxygen Delivery Me thod Room Air 06/06/25 09:07 MDM - URI/Sore Throat Medical Decision Making Medical decision making: Differential diagnosis including but not limited to and based on the above HPI, review of systems and physical exam: With both mom and son having same symptoms likely viral but could be strep. Strep swab sent. Orders placed to evaluate differential diagnosis based on the above differential, HPI and physical exam Lab Review: Laboratory results were reviewed and interpreted by myself the emergency room physician. Rapid strep is negative I reviewed the patient's medical record. Reexamination: Patient remained stable. No increased work of breathing. No altered mental status. No focal motor deficits. Assessment and plan: Pharyngitis - Discharged home - Discussed plan with patient. Answered any questions. - Evaluation and treatment of this problem were appropriate in the emergency setting. Lab Data Laboratory Results Group A Strep Rapid Negative (Negative) 06/06/25 09:10 No radiology studies performed this visit Discharge Plan Discharge Patient Disposition: Home Clinical Impression: Pharyngitis Condition: Stable Prescriptions: New dexamethasone 6 mg tablet 6 mg PO DAILY 5 Days Qty: 5 0RF cephalexin 500 mg tablet 500 mg PO TID 7 Days Qty: 21 0RF No Action valacyclovir 500 mg tablet 500 mg PO DAILY clindamycin HCl 300 mg capsule 300 mg PO TID amoxicillin 500 mg tablet 500 mg PO BID 10 Days Qty: 20 0RF [id number]-[id number]-[id number] [Fioricet] 50-300-40 mg capsule 1 cap PO Q8H PRN Discharge Orders: Discharge ED (Routine); Ordered 06/06/25 Ordered By: Tania Singer Referrals: Cameron Tracey [Primary Care Provider, Family Practice] Discharge Diet: Advance as tolerated Discharge Activity: Increase activity as tolerated Patient Instructions: Pharyngitis (ED), Opioid Safety, Pain Management, Patient Portal & Vero Instructions Activity Restrictions/Additional Instructions: Thank you for choosing [facility] for your healthcare needs today. You have been screened and evaluated and felt safe for discharge. Health conditions do change or evolve sometimes and as such it is important that you follow up with your Primary Doctor to be re checked, 3-5 days is a general good time frame for follow up. You are always welcome to return to the ED for re assessment if your symptoms are worsening or you have new concerns Print Language: Khmer Coding Level of Care Code ED Acid Extractor for Wali Lambert
[2025-06-06 09:30] LABS: Rapid Strep A Test Negative (Negative)
== END 2025-06-06 09:59 | disposition home or self-care (01) ==
PROVIDERS: Emergency Provider Emergency Medicine; PCP Family Medicine
DX: J02.9 Acute pharyngitis, unspecified (principal)
CPT/HCPCS: 87081; 87880; 99283